=== PATIENT | male | born 1980 | race Caucasian/White ===

== ENCOUNTER 2020-11-07 11:03 | Emergency (ER) | payer MEDICAID, SELFPAY ==
--- NOTE | ~2020-11-07 | XR_ITS ---
EXAMINATION: XR HAND, LEFT CLINICAL INFORMATION: finger amputation. COMPARISON: None TECHNIQUE: PA, lateral, and oblique views of the left hand. FINDINGS: There is amputation of distal mid phalangeal bone and soft tissues of the fourth digit. The PIP and DIP joints of all digits are normal. Rest of the phalanges are normal. XR/XR hand LT min 3V IMPRESSION: Amputation of distal mid phalangeal bone and soft tissues likely echogenic. Rest of the left hand is unremarkable.
[2020-11-07 11:05] VITALS: BP 151/90; PULSE 77; RESP 16; TEMP 37.1; O2SAT 98; BMI 26.6
--- NOTE | 2020-11-07 11:11 | ED.UPPEXIN ---
HPI - Extremity Injury (Upper) General Chief Complaint: Wound/Laceration <Joana Bain DO - Last Filed: 11/07/20 16:16> Stated Complaint: finger amputation <Joana Bain DO - Last Filed: 11/07/20 16:16> Time Seen by Provider: 11/07/20 11:04 <Joana Bain DO - Last Filed: 11/07/20 16:16> Source: patient <FCO Willard - Last Filed: 11/07/20 19:04> Mode of arrival: ambulatory <FCO Willard - Last Filed: 11/07/20 19:04> Limitations: no limitations <FCO Willard - Last Filed: 11/07/20 19:04> History of Present Illness HPI narrative: 40-year-old male presents with left 4th digit amputation on at the DIP. Patient was throwing a TV away, and his right 4th finger got crushed between the TV and the lip of a metal container. Wound is bleeding and there is bone exposed. <FCO Willard - Last Filed: 11/07/20 19:04> MD complaint: injury to: right <FCO Willard - Last Filed: 11/07/20 19:04> Onset (ago): hour(s) (1) <FCO Willard - Last Filed: 11/07/20 19:04> Other Extremity Injury: left: fingers <FCO Willard - Last Filed: 11/07/20 19:04> Other injuries: none <FCO Willard Last Filed: 11/07/20 19:04> Handedness: right <FCO Willard - Last Filed: 11/07/20 19:04> Place: home <FCO Willard Last Filed: 11/07/20 19:04> Severity: severe <FCO Willard - Last Filed: 11/07/20 19:04> Severity scale (1-10): 10 <FCO Willard Last Filed: 11/07/20 19:04> Relieving factors: none <FCO Willard Last Filed: 11/07/20 19:04> Exacerbating factors: movement of extremity <FCO Willard Last Filed: 11/07/20 19:04> Context: direct blow <FCO Willard Last Filed: 11/07/20 19:04> Associated symptoms: denies other symptoms <FCO Willard Last Filed: 11/07/20 19:04> Related Data Home Medications: Previous Rx's Medication Instructions Recorded amoxicillin 875 mg-potassium 1 tab PO BID 7 Days #14 tab 11/07/20 clavulanate 125 mg tablet (Augmentin) oxycodone 5 mg capsule 5 mg PO Q6H 3 Days #12 cap 11/07/20 <DO Carol Stacy Last Filed: 11/07/20 16:16> Allergies/Adverse Reactions: Allergies Allergy/AdvReac Type Severity Reaction Status Date / Time shrimp Allergy Unknown DIFFICULTY Unverified 12/13/19 15:31 BREATHING shrimp Allergy Unknown Uncoded 11/17/18 00:00 <DO Carol Stacy Last Filed: 11/07/20 16:16> Review of Systems Review of Systems: Constitutional : No Weight loss, No Fever, No Chills, No Night Sweats,No Fatigue, No Malaise ENT/Mouth : No Hearing loss, No Ear Pain, No Nasal Congestion, NoSinus Pain, No Hoarseness, No sore throat, No Rhinorrhea, NoSwallowing Difficulty Eyes: No Eye Pain, No Swelling, No Redness, No Foreign Body, NoDischarge, No Vision Changes Cardiovascular : No Chest Pain, No SOB, No Dyspnea on Exertion, NoOrthopnea, No Edema, No Palpitations Respiratory : No Cough, No Sputum, No Wheezing, No Smoke Exposure, No Dyspnea Gastrointestinal : No Nausea, No Vomiting, No Diarrhea, NoConstipation, No abdominal Pain, No Hematochezia, No Melena Genitourinary : no irregular bleeding, No Dysuria, No UrinaryFrequency, No Hematuria, No Urinary Incontinence, No Urgency, No FlankPain, No Urinary Flow Changes, No Hesitancy Musculoskeletal : pain and bleeding at amputation site left fourth finger Skin : No Skin Lesions, No rash Neuro : No Weakness, No Numbness, No Paresthesias, No Loss ofConsciousness, No Dizziness, No Headache Psych : mild anxiety, tremors in hands, , No Depression, No SI/HI/AH/VH, No Social Issues, Endocrine : No Polyuria, No Polydipsia, No Temperature Intolerance <FCO Willard Last Filed: 11/07/20 19:04> PMFSH Past Medical History Medical History: Medical History (Updated 11/07/20 @ 15:41 by FCO Willard) Asthma <Joana Bain DO - Last Filed: 11/07/20 16:16> Social History Social History: Social History Alcohol intake: current Alcohol intake frequency: holidays/special occasions only Patient Tobacco Use Status: Never used Tobacco Substance Use Type: Marijuana <Joana Bain DO - Last Filed: 11/07/20 16:16> Physical Exam Vital Signs: Vital Signs: Last Vital Signs Temp 98.0 F 11/07/20 13:00 Pulse 66 11/07/20 15:08 Resp 18 11/07/20 15:08 BP 127/79 11/07/20 15:08 Pulse Ox 97 11/07/20 15:08 Body Mass Index 26.6 <Joana Bain DO - Last Filed: 11/07/20 16:16> Vital Signs: Last Vital Signs Temp 98.0 F 11/07/20 13:00 Pulse 66 11/07/20 15:08 Resp 18 11/07/20 15:08 BP 127/79 11/07/20 15:08 Pulse Ox 97 11/07/20 15:08 Body Mass Index 26.6 <FCO Willard - Last Filed: 11/07/20 19:04> Const: General: cooperative, no acute distress, well developed, alert and awake <FCO Willard - Last Filed: 11/07/20 19:04> Nutritional Appearance: well nourished <FCO Willard Last Filed: 11/07/20 19:04> Orientation/consciousness: patient oriented x3 <FCO Willard - Last Filed: 11/07/20 19:04> Limitations: no limitations <FCO Willard Last Filed: 11/07/20 19:04> Eyes: Conjunctivae: conjunctivae normal <FCO Willard Last Filed: 11/07/20 19:04> Pupils: Equal, round and reactive pupils present <Jes Torres [facility] Last Filed: 11/07/20 19:04> EOM: EOMs intact bilaterally <Jes Torres [facility] Last Filed: 11/07/20 19:04> Neck: Neck: Yes full ROM, Yes no lymphadenopathy and Yes supple <Jes Torres [facility] Last Filed: 11/07/20 19:04> Resp: Effort & Inspection: normal respiratory effort and able to speak in complete sentences <Jes Torres [facility] Last Filed: 11/07/20 19:04> Auscultation: clear to auscultation bilaterally, no crackles, no rales, no rhonchi and no wheezes <Jes Torres [facility] Last Filed: 11/07/20 19:04> Cardio: Rate: regular rate <Jes Torres [facility] Last Filed: 11/07/20 19:04> Rhythm: regular rhythm <Jes Torres [facility] Last Filed: 11/07/20 19:04> Heart sounds: S1 normal heart sound present and S2 normal heart sound present <Jes Torres [facility] Last Filed: 11/07/20 19:04> Skin: Other: Traumatic amputation of left 4th digit at the IP joint, bone is exposed. <Jes Torres [facility] Last Filed: 11/07/20 19:04> Neuro: General: patient oriented x3, tone normal and moves all extremities <Jse Torres [facility] Last Filed: 11/07/20 19:04> Cranial nerves: Yes Equal, round and reactive pupils present <Jes Torres [facility] Last Filed: 11/07/20 19:04> Extrem: Other: Traumatic amputation of left 4th digit at the IP joint, bone is exposed <Jes Torres [facility] Last Filed: 11/07/20 19:04> Psych: Appearance: grossly normal <Jes Torres [facility] Last Filed: 11/07/20 19:04> Affect: normal affect <Jes Torres [facility] Last Filed: 11/07/20 19:04> Attitude: cooperative <Jes Torres [facility] Last Filed: 11/07/20 19:04> Thought process: Normal thought process present <FCO Willard - Last Filed: 11/07/20 19:04> Course Course Course Narrative: THE PATIENT CAME IN WITH HIS FINGERTIP, I TOLD HIM I WOULD NEED TO CALL [facility] TO IMPLANT IT AND HE ADAMANTLY REFUSES, STATES HE DOESN'T WANT TO UNDERGO SURGERY AND HE DOES NOT CARE ABOUT LOSING HIS FINGERTIP, ALERT AND ORIENTED X 3, RNS AT BEDSIDE. I was called to the bedside by FCO Torres the patient has now been videotaping the PA and myself with our badges and faces included in the videos I have instructed him to please stop filming up as we do not give consent. His response was Fuck you, call the mayor then you'll see who the fuck I am. Security notified. <Joana Bain DO - Last Filed: 11/07/20 16:16> THE PATIENT CAME IN WITH HIS FINGERTIP, I TOLD HIM I WOULD NEED TO CALL [facility] TO IMPLANT IT AND HE ADAMANTLY REFUSES, STATES HE DOESN'T WANT TO UNDERGO SURGERY AND HE DOES NOT CARE ABOUT LOSING HIS FINGERTIP, ALERT AND ORIENTED X 3, RNS AT BEDSIDE. I was called to the bedside by FCO Torres the patient has now been videotaping the PA and myself with our badges and faces included in the videos I have instructed him to please stop filming up as we do not give consent. His response was Fuck you, call the mayor then you'll see who the fuck I am. Security notified. 40-year-old male presents with left 4th fingertip amputation. Patient has his finger tip in a bag and it is warm. However, he refused to be transferred to [place] to have a reattached. Patient spoke both with me and with Dr. foreman about reattaching his finger, and he adamantly refused. Hemostasis was achieved with a tourniquet. Digital block block was performed, 6 mL of 1% lidocaine. Pain control was achieved. I placed 2 loose sutures, but could not pull the skin together. Dr. Linder orthopedics came down and saw the patient and did his procedure. Patient was advised to come into the orthopedic office on Tuesday, given the phone number to call. Patient was advised that the orthopedic surgeon said he did not need an appointment, he could come into the office an orthopedic surgeon would take care of him. Prescribed pain meds and Augmentin. Consultation to return if he had worsening pain, fevers, or any new or concerning symptoms <FCO Willard - Last Filed: 11/07/20 19:04> MDM - Extremity Injury (Upper) Lab Data Result diagrams: : 11/07/20 11:24 11/07/20 11:24 <Joana Bain DO - Last Filed: 11/07/20 16:16> Labs: Lab Results 11/07/20 11/07/20 Range/Units 11:24 11:24 WBC 8.9 (4.8-10.8) X10*3/uL RBC 5.32 (4.60-5.80) X10*6/uL Hgb 14.8 (14.0-18.0) g/dl Hct 45.9 (42-52) % MCV 86.3 (80-98) fL MCH 27.8 (27.0-33.0) pg MCHC 32.2 (31.0-36.0) g/dl RDW 14.4 (11.0-16.0) % Plt Count 229 (160-400) X10*3/uL MPV 9.8 (9.4-12.4) fL Immature Gran % (Auto) 0.2 (0.0-0.4) % Neut % (Auto) 65.2 (45-73) % Lymph % (Auto) 21.3 (20-40) % [place] % (Auto) 10.4 (2-11) % Eos % (Auto) 2.6 (0-4) % Baso % (Auto) 0.3 (0-2) % Lymph # (Auto) 1.9 (1.2-4.9) X10*3/uL [place] # (Auto) 0.9 (0.1-1.2) X10*3/uL Eos # (Auto) 0.2 (0.0-0.4) X10*3/uL Baso # (Auto) 0.0 (0.0-0.2) X10*3/uL Abs Immat Gran (auto) 0.02 (0.00-0.03) X10*3/uL Absolute Neuts (auto) 5.8 (2.0-8.3) X10*3/uL Absolute Nucleated RBC 0.000 (0.0-0.012) X10*3/uL Nucleated RBC % (auto) 0.0 (0.0-0.2) /100WBC Sodium 143 (135-145) mmol/L Potassium 4.4 (3.3-5.1) mmol/L Chloride 111 H (96-108) mmol/L Carbon Dioxide 22 (22-29) mmol/L Anion Gap 14 (12-20) BUN 16 (9-16) mg/dL Creatinine 1.08 (0.5-1.4) mg/dL Estim Creat Clear Calc 84.1 Estimated GFR > 60 Random Glucose 103 (60-115) mg/dL Calcium 8.9 (8.4-10.2) mg/dL <Joana Bain DO - Last Filed: 11/07/20 16:16> Lab Results 11/07/20 11/07/20 Range/Units 11:24 11:24 WBC 8.9 (4.8-10.8) X10*3/uL RBC 5.32 (4.60-5.80) X10*6/uL Hgb 14.8 (14.0-18.0) g/dl Hct 45.9 (42-52) % MCV 86.3 (80-98) fL MCH 27.8 (27.0-33.0) pg MCHC 32.2 (31.0-36.0) g/dl RDW 14.4 (11.0-16.0) % Plt Count 229 (160-400) X10*3/uL MPV 9.8 (9.4-12.4) fL Immature Gran % (Auto) 0.2 (0.0-0.4) % Neut % (Auto) 65.2 (45-73) % Lymph % (Auto) 21.3 (20-40) % [place] % (Auto) 10.4 (2-11) % Eos % (Auto) 2.6 (0-4) % Baso % (Auto) 0.3 (0-2) % Lymph # (Auto) 1.9 (1.2-4.9) X10*3/uL [place] # (Auto) 0.9 (0.1-1.2) X10*3/uL Eos # (Auto) 0.2 (0.0-0.4) X10*3/uL Baso # (Auto) 0.0 (0.0-0.2) X10*3/uL Abs Immat Gran (auto) 0.02 (0.00-0.03) X10*3/uL Absolute Neuts (auto) 5.8 (2.0-8.3) X10*3/uL Absolute Nucleated RBC 0.000 (0.0-0.012) X10*3/uL Nucleated RBC % (auto) 0.0 (0.0-0.2) /100WBC Sodium 143 (135-145) mmol/L Potassium 4.4 (3.3-5.1) mmol/L Chloride 111 H (96-108) mmol/L Carbon Dioxide 22 (22-29) mmol/L Anion Gap 14 (12-20) BUN 16 (9-16) mg/dL Creatinine 1.08 (0.5-1.4) mg/dL Estim Creat Clear Calc 84.1 Estimated GFR > 60 Random Glucose 103 (60-115) mg/dL Calcium 8.9 (8.4-10.2) mg/dL <FCO Willard Last Filed: 11/07/20 19:04> Procedures Laceration Laceration 1: Site: hand <FCO Willard Last Filed: 11/07/20 19:04> Side (If applicable): left <FCO Willard Last Filed: 11/07/20 19:04> Description: flap <FCO Willard Last Filed: 11/07/20 19:04> Local Anesthetic: lidocaine 1% <FCO Willard Last Filed: 11/07/20 19:04> Amount of anesthesia used (mL): 6 <FCO Willard Last Filed: 11/07/20 19:04> Pre-repair: wound explored and irrigated extensively <FCO Willard Last Filed: 11/07/20 19:04> Skin layer closed with: vicryl <FCO Willard Last Filed: 11/07/20 19:04> Size (cm): 4-0 <FCO Willard Last Filed: 11/07/20 19:04> Number of sutures: 2 <FCO Willard - Last Filed: 11/07/20 19:04> Technique: simple, interrupted <FCO Willard - Last Filed: 11/07/20 19:04> Discharge Plan Discharge Clinical Impression: Amputated finger Qualifiers: Encounter type: initial encounter Qualified Code(s): S68.119A - Complete traumatic metacarpophalangeal amputation of unspecified finger, initial encounter <Joana Bain DO - Last Filed: 11/07/20 16:16> Patient Disposition: Home, Self-Care <Joana Bain DO - Last Filed: 11/07/20 16:16> Instructions: Finger Amputation (ED) <Joana Bain DO - Last Filed: 11/07/20 16:16> Additional Instructions: Please leave the dressing on her finger and so Tuesday. Please comment to the orthopedic office on Tuesday, they were unable to make an appointment today, but Dr. Linder . said it can come in any time and then he will see you. I advise you to Please call when you get home [phone] I am prescribing antibiotics and pain medication, please pick them up at your pharmacy. Please return to the emergency room if you have worsening pain, fevers, vomiting, or any other new or concerning symptoms <Joana Bain DO - Last Filed: 11/07/20 16:16> Prescriptions: New amoxicillin-pot clavulanate [Augmentin] 875-125 mg tablet 1 tab PO BID 7 Days Qty: 14 RF: 0 oxycodone 5 mg capsule 5 mg PO Q6H 3 Days Qty: 12 RF: 0 <Joana Bain DO - Last Filed: 11/07/20 16:16> Referrals: Lobo Linder MD [Physician] - 2 days (coming to see you Tuesday) <DO Carol Stacy Last Filed: 11/07/20 16:16> Interventions: ED Discharge Assessment Last Done: 11/07/20 15:47 <Joana Bain DO - Last Filed: 11/07/20 16:16> Discharge Date/Time: 11/07/20 15:48 <DO Carol Stacy Last Filed: 11/07/20 16:16>
[2020-11-07] MEDS: HYDROmorphone HCl 1 MG/ML SYRINGE IVPUSH (11:15)
[2020-11-07] MEDS: ondansetron HCL 4 MG/2 ML VIAL IVPUSH (11:16)
[2020-11-07] MEDS: Diphth,Pertus(ACell),Tet Adult 0.5 ML SYRINGE IM (11:19)
[2020-11-07 11:27] LABS: MANUAL DIFF FLAG NO
[2020-11-07 11:29] LABS: Basophils Percent Auto 0.3 % (0-2); Eosinophils Absolute Auto 0.2 X10*3/uL (0.0-0.4); Eosinophils Percent Auto 2.6 % (0-4); Hematocrit 45.9 % (42-52); Hemoglobin 14.8 g/dl (14.0-18.0); Imm Gran Abs Auto 0.02 X10*3/uL (0.00-0.03); Imm Gran Pct Auto 0.2 % (0.0-0.4); Lymphocytes Absolute Auto 1.9 X10*3/uL (1.2-4.9); Lymphocytes Percent Auto 21.3 % (20-40); Mean Corpuscular HGB Conc 32.2 g/dl (31.0-36.0); Mean Corpuscular Hemoglobin 27.8 pg (27.0-33.0); Mean Corpuscular Volume 86.3 fL (80-98); Mean Platelet Volume 9.8 fL (9.4-12.4); Monocytes Absolute Auto 0.9 X10*3/uL (0.1-1.2); Monocytes Percent Auto 10.4 % (2-11); Neutrophils Absolute Auto 5.8 X10*3/uL (2.0-8.3); Neutrophils Percent Auto 65.2 % (45-73); Platelet Count 229 X10*3/uL (160-400); Red Blood Count 5.32 X10*6/uL (4.60-5.80); Red Cell Distribution Width 14.4 % (11.0-16.0); White Blood Count 8.9 X10*3/uL (4.8-10.8)
[2020-11-07] MEDS: Lidocaine HCl 1 % MPF 5 ML VIAL SUBCUT ×2 (11:44)
[2020-11-07 11:51] LABS: Anion Gap 14 (12-20); Blood Urea Nitrogen 16 mg/dL (9-16); Calcium 8.9 mg/dL (8.4-10.2); Carbon Dioxide 22 mmol/L (22-29); Chloride 111 mmol/L (96-108); Creatinine Clr Calc Pharmacy 84.1; Estimated Glomerular Filt Rate > 60; Glucose Random 103 mg/dL (60-115); Potassium 4.4 mmol/L (3.3-5.1); Sodium 143 mmol/L (135-145)
--- NOTE | 2020-11-07 12:33 | PC.NURSE ---
ortho mlp at bedside, pt aware of plan of care.
[2020-11-07 13:00] VITALS: BP 140/92; PULSE 70; RESP 16; TEMP 36.7; O2SAT 98
[2020-11-07] MEDS: Lidocaine HCl 1 % 20 ML VIAL 10 ML INFILTRATI (14:12)
[2020-11-07 14:13] VITALS: BP 135/93; PULSE 68; RESP 16; O2SAT 96
--- NOTE | 2020-11-07 14:15 | PC.NURSE ---
dr. Linder at bedside, pt and sister aware of plan of care.
--- NOTE | 2020-11-07 14:27 | PC.NURSE ---
called [facility] at 1400 for stemi call placed to action for stemi standby at 1403 [facility] called back at [phone] and accepted pt left er on ambulance at [phone]
[2020-11-07] MEDS: HYDROmorphone HCl 2 MG TABLET 1 MG PO (14:30)
--- NOTE | 2020-11-07 15:06 | PC.NURSE ---
ASSUMED CARE OF PT. PT HAVING PROCEDURE DONE AT THIS TIME. PT DENIES PAIN/COMPLAINTS AT THIS TIME. SISTER AT BEDSIDE WITH PT. WILL CONTINUE TO MONITOR PT.
[2020-11-07 15:08] VITALS: BP 127/79; PULSE 66; RESP 18; O2SAT 97
--- NOTE | 2020-11-24 13:51 | PM.OP ---
Brief Operative Note Date of Service: 11/07/20 Pre-op diagnosis: traumatic partial amputation left ring jalene Post-op diagnosis: same Procedure: debridement and clsoere, partial amputation Surgeon: Lobo Linder MD Anesthesia: local Was an Intelligence Research Specialist used for this Procedure?: No Estimated blood loss (mL): 20 Pathology: none sent Condition: stable Disposition: no change
--- NOTE | 2020-11-24 13:54 | W.PM.OPN ---
Operative Note Operative Note Date of Service: 11/24/20 Narrative: Pre-op diagnosis: traumatic partial amputation left ring finge Post-op diagnosis: same Procedure: debridement and clsoere, partial amputation Surgeon: Lobo Linder MD Anesthesia: local Was an Digital Media Buyer used for this Procedure?: No Estimated blood loss (mL): 20 Pathology: none sent Condition: stable Disposition: no change
--- NOTE | 2020-11-24 16:26 | W.PM.OPN ---
Operative Note Operative Note Date of Service: 11/24/20 Narrative: Pre-op diagnosis: traumatic partial amputation left ring finge Post-op diagnosis: same Procedure: debridement and clsoere, partial amputation Surgeon: Lobo Linder MD Anesthesia: local Was an Pumping Plant Operator used for this Procedure?: No Estimated blood loss (mL): 20 Pathology: none sent Condition: stable Disposition: no change Procedure in detail: I began by sterilizing the field in standard fashion. I then injected approximately 8 mL of 0.25% Marcaine into the base of the ring finger. Once he was completely anesthetized I irrigated copiously 0 with approximately 2 L of warm saline. I then used a small rongeur to remove the portion of exposed bone. I then used a 3-0 nylon suture to reapproximate the skin over any additional exposed bone. There was also a nail avulsion with tenuous skin over the dorsum of the finger. I then wrapped the wound and Xeroform and a soft bandage and the patient was sent home with a prescription of antibiotics and pain medication. Patient understands that he may require dished all procedures for completion amputation of the digit.
== END 2020-11-07 15:48 | disposition home or self-care (01) ==
PROVIDERS: Emergency Provider Emergency Medicine
DX: S68.615A Complete traumatic transphalangeal amputation of left ring finger, initial encounter (principal); W23.1XXA Caught, crushed, jammed, or pinched between stationary objects, initial encounter; Y93.E9 Activity, other interior property and clothing maintenance; Y92.9 Unspecified place or not applicable; Y99.9 Unspecified external cause status
CPT/HCPCS: 12042; 36415; 73130; 80048; 85025; 90471; 90715; 96365; 96375; 99284; J0690; J1170; J2405

== ENCOUNTER → 2020-11-10 09:28 | Outpatient (BNVA) | payer MEDICAID, SELFPAY | PROVIDERS: Visit Provider Physician Assistant | DX: S68.115A Complete traumatic metacarpophalangeal amputation of left ring finger, initial encounter (principal) | CPT/HCPCS: 99202 ==

== ENCOUNTER → 2020-11-19 09:36 | Outpatient (BNVA) | payer MEDICAID, SELFPAY | PROVIDERS: Visit Provider Physician Assistant | DX: Z47.81 Encounter for orthopedic aftercare following surgical amputation (principal); S68.115D Complete traumatic metacarpophalangeal amputation of left ring finger, subsequent encounter | CPT/HCPCS: 99212 ==

== ENCOUNTER 2020-11-19 20:22 | Emergency (ER) | payer MEDICAID, SELFPAY ==
--- NOTE | ~2020-11-19 | XR_ITS ---
EXAMINATION: XR HAND, LEFT CLINICAL INFORMATION: Injury COMPARISON: None TECHNIQUE: PA, lateral, and oblique views of the left hand. FINDINGS: 8. Distal aspect distal phalanx fourth digit. Multiple bone fragments in the region. XR/XR hand LT min 3V IMPRESSION: Significantly Comminuted bony fracture/injury involving the distal tuft. Fourth digit. There may be avulsion of the most distal fragments with loss of soft tissue. Fracture does not appear to involve the DIP joint
[2020-11-19 20:45] VITALS: BP 119/61; PULSE 105; RESP 18; TEMP 37; O2SAT 95; BMI 25.8
[2020-11-19] MEDS: oxyCODONE HCl Immed Release 5 MG TABLET 10 MG PO (22:44)
[2020-11-19] MEDS: Amoxicillin/Potassium Clav 875 MG TABLET PO (22:45)
--- NOTE | 2020-11-19 23:09 | ED.WOUNDLAC ---
HPI - Wound/Laceration General Chief Complaint: Wound/Laceration Stated Complaint: pain in ring finger Time Seen by Provider: 11/19/20 21:39 Source: patient Mode of arrival: ambulatory Limitations: no limitations History of Present Illness HPI narrative: Patient with left hand ring finger tip amputation on 11/10 came with throbbing pain , seen hand specialist today and plan to get surgery done. Complaining of throbbing pain and came to the ER as unable to get the pain medication Related Data Previous Rx's Medication Instructions Recorded oxycodone 5 mg capsule 5 mg PO Q6H 3 Days #12 cap 11/07/20 amoxicillin 875 mg-potassium 1 tab PO BID 7 Days #14 tab 11/19/20 clavulanate 125 mg tablet (Augmentin) oxycodone-acetaminophen 5 mg-325 1 tab PO .QHS PRN 7 Days #7 tab 11/19/20 mg tablet (Percocet) Allergies Allergy/AdvReac Type Severity Reaction Status Date / Time shrimp Allergy Unknown DIFFICULTY Verified 11/19/20 20:45 BREATHING shrimp Allergy Unknown nausea Uncoded 11/19/20 09:47 Review of Systems Review of Systems: Yes all other systems are reviewed and are negative [facility] Past Medical History Medical History Asthma Social History Social History (Updated 11/19/20 @ 09:44 by Jean Shea) Alcohol intake: current Alcohol intake frequency: holidays/special occasions only Patient Tobacco Use Status: Never used Tobacco Substance Use Type: Marijuana Advance Directives: No Advance Directives Information Provided: Yes Current occupational status: unemployed Current occupation: rt handed Physical Exam Vital Signs: Vital Signs: Last Vital Signs Temp 98.6 F 11/19/20 20:45 Pulse 105 H 11/19/20 20:45 Resp 18 11/19/20 20:45 BP 119/61 11/19/20 20:45 Pulse Ox 95 11/19/20 20:45 Body Mass Index 25.8 Extrem: Hand/finger images: 1. Tip amputation left ring finger with black eschar with intact sutures MDM - Wound/Laceration MDM Narrative Medical decision making narrative: Xeroform dressing was applied patient advised to continue pain medication and antibiotic and follow with hand surgeon as scheduled Discharge Plan Discharge Clinical Impression: Amputation of left ring finger Patient Disposition: Home, Self-Care Instructions: Finger Amputation (ED) Additional Instructions: Continue antibiotic and take pain medication as prescribed and follow-up with hand surgeon as scheduled Prescriptions: No Action oxycodone 5 mg capsule 5 mg PO Q6H 3 Days Qty: 12 RF: 0 amoxicillin-pot clavulanate [Augmentin] 875-125 mg tablet 1 tab PO BID 7 Days Qty: 14 RF: 0 oxycodone-acetaminophen [Percocet] 5-325 mg tablet 1 tab PO .QHS PRN (Reason: pain) 7 Days Qty: 7 RF: 0
== END 2020-11-19 23:34 | disposition home or self-care (01) ==
PROVIDERS: Emergency Provider Internal Medicine; PCP Internal Medicine
DX: S68.115A Complete traumatic metacarpophalangeal amputation of left ring finger, initial encounter (principal); S00.81XA Abrasion of other part of head, initial encounter; M79.642 Pain in left hand; X58.XXXA Exposure to other specified factors, initial encounter; Y93.9 Activity, unspecified; Y92.9 Unspecified place or not applicable; Y99.9 Unspecified external cause status; Z79.899 Other long term (current) drug therapy
CPT/HCPCS: 73130; 99283; 99284

== ENCOUNTER 2020-11-21 11:30 | Outpatient (RCR) | payer MEDICAID, SELFPAY ==
--- NOTE | 2020-11-11 12:11 | MHC.OT.OEV ---
[address] [phone] F: [phone] Occupational Therapy Evaluation Diagnosis: Left D4 finger tip amputation Date of Onset: 11/07/20 Date of Surgery: Attending Provider: Nestor Shipley PA-C Prescribed Treatment: Eval and Treat MD Follow Up Appointment: 11/17/20 History of Current Condition: 40 yo male presents four days s/p left D4 distal digit tip amputation. He was seen in ED by Dr Linder, partially sutured and partially open healing. He followed up with Nestor, wound dressed w/ bacitracin and gauze, and referred to OT for follow up wound care. 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 No s/s of infection. AROM(PROM) Strength Digits Index MCP: PIP: DIP: Long MCP: PIP: DIP: Ring MCP: PIP: DIP: Small MCP: PIP: DIP: Comments: slightly decreased D4 MP/PIP Gross Grasp: Lateral Pinch: Two-Point Pinch: Three-Jaw Stevenson: Comments: Patient Education Primary Language: Trinid[place] Bell Captain Required: No Current Knowledge: Minimal, needs reinforcement Teaching Method: Demonstration Handouts Phone Call Verbal Education Needs Identified on Evaluation: ADL's Disease Information Equipment Use Exercise Pain Safety How did patient/family demonstrate learning? Patient demonstrates Patient verbalizes Needs reinforcement Barriers to Learning: None Readiness for Learning: Accepting Who was educated? Patient Comments: Pt needing reminders to keep wound/dressing dry, elevated. Pt with somewhat decreased STM, forgetting to make appts on way out, needing cues to return to appts. Plan of Care Assessment: 40 yo male presents four days s/p left D4 distal digit tip amputation. He was seen in ED by Dr Linder, partially sutured and partially open healing. He followed up with Nestor, wound dressed w/ bacitracin and gauze, and referred to OT for follow up wound care. On initial OT eval, dressing removed, dry and needing saline poured over to assist loosen bandage. Sutures intact, otherwise wound is open w/ light sanguineous drainage, no s/s of infection. He will require cont'd OT for wound care and progression of activity once wound is closed. STG Duration: 1 week Short Term Goals: Pt to demo good safety w/ protection of wound, including keeping dressing clean and dry Good PIP and MP movement LTG Duration: 4 weeks Pressure Tank Operator Goals: Pt to demo Ind w/ self desesnitization techniques Pt to use ring finger for light activity if wound is closed Frequency and Duration: The patient will be seen 3x/wk for 4 weeks Treatment Plan: Therapeutic Exercise Therapeutic Activity Home Exercise Program Splinting Patient Education Desensitization/Sensory Re-ed Edema Control ADL Training Soft Tissue Mobilization Electronically Signed By: Erendira Moreno OTR/L Reviewed/agree with student documentation: N/A Therapist: Please sign and return to therapist, Thank you for your referral.
--- NOTE | 2020-11-17 11:54 | MHC.OT.OP ---
[address] [phone] F: [phone] Occupational Therapy Progress Note Diagnosis: Left D4 finger tip amputation Date of Surgery: 11/07/20 Date of Evaluation: 11/11/20 Treatments to Date: 3 Subjective: I've just had a hard week Pain Score: 6 Pain Location: Left D4 tip Objective Measures: Presents 30 min late, discussed importance of keeping to schedule, but that therapist appreciates he still comes and even in the future to come if he is late or misses an appt. Pt present w/ gauze and coban dressing, dressing is dirty, reviewed importance of keeping clean. OT removed dressing, using light sterile water poured over to assist w/ dryness. Sutures intact and wound bed clean, no drainage, healing skin buds noted. Edges clean, proximal site healing well w/ light pink skin. Distal tip noted dark red 1cm sq region, does not appear to be black/necrotic tissue, no sign of infection. Practiced gentle AROM of digit. Redressed w/ bacitracin, light gauze and gauze tube wrap, no compressive force at this time. Pt ed on importance of keeping dry and clean, discussed smoking and wound closure. Status: Progressing Assessment: Sutures intact, otherwise wound is open w/ no drainage, no s/s of infection. Needs reminders for optimal healing techniques. Short Term Goals: Pt to demo good safety w/ protection of wound, including keeping dressing clean and dry Good PIP and MP movement Nursing Information Systems Coordinator Goals: Pt to demo Ind w/ self desesnitization techniques Pt to use ring finger for light activity if wound is closed Frequency and Duration: The patient will be seen 3-5x/wk for 4 weeks Treatment Plan: Therapeutic Exercise Therapeutic Activity Home Exercise Program Splinting Patient Education Desensitization/Sensory Re-ed Edema Control ADL Training Soft Tissue Mobilization Electronically Signed By: ADRYAN Contreras/Domi
--- NOTE | 2020-12-10 10:57 | MHC.OT.DC ---
[address] [phone] F: [phone] Occupational Therapy Discharge Note Provider: Dr Gonzalez Diagnosis: Left D4 finger tip amputation Date of Surgery: 11/07/20 Date of Evaluation: 11/11/20 Date of Discharge: 12/10/20 Treatments to Date: 5 Discharge Summary: Lamine has recently undergone surgical amputation/revision of distal tip amputation and is seen by ortho for follow-ups, He has not returned to OT since surgery. We will discharge at this time, please re-order if needed to continue simple wound care and/or progression of rehab, thank you. Electronically Signed By: Erendira Moreno OTR/Domi Please Sign and return to therapist, thank you for your referral.
== END 2020-12-10 10:58 | disposition home or self-care (01) ==
LOC: HO.OT 11:30
PROVIDERS: Visit Provider Physician Assistant
DX: S68.115A Complete traumatic metacarpophalangeal amputation of left ring finger, initial encounter (principal)
CPT/HCPCS: 97110; 97165; 97530; 97597

== ENCOUNTER 2020-11-25 07:22 | Day surgery (SDC) | payer MEDICAID, SELFPAY ==
[2020-11-25] VITALS (8 sets, daily range): BP systolic 115–143; BP diastolic 73–95; PULSE 64–88; RESP 12–18; TEMP 36.3–36.8; O2SAT 99–100; BMI 26.6
--- NOTE | 2020-11-25 09:20 | PC.NURSE ---
Patient arrived to [facility] with one black watch, two bracelets, two necklaces, and three rings. All removed and placed in patient labeled bins.
--- NOTE | 2020-11-25 10:52 | HO.ANESPROP2 ---
HPI - Anesthesia Eval Consult details Narrative: [age] male for amputation revision of the left ring finger PMFSH Active Problems Active Problems: All Active Problems (Updated 11/19/20 @ 22:36 by Wade De La Vega MD) Amputation of left ring finger (Acute) Past Medical History Medical History Asthma Family History Family history of problems with anesthesia: No Surgical History History of Problems with Anesthesia: No Social History Social History (Updated 11/19/20 @ 09:44 by Jean Shea) Alcohol intake: current Alcohol intake frequency: holidays/special occasions only Patient Tobacco Use Status: Current everyday Tobacco user Tobacco use type: Cigarette Cigarettes Per Day: 5 Years Smoked: 15 Smoked in Last 30 Days: Yes Use of substances other than those prescribed or required for medical reasons: No Substance Use Type: Marijuana Substance Use Frequency: Chronic Longstanding Are you DNR?: No Advance Directives: No Advance Directives Information Provided: Yes Current occupational status: unemployed Current occupation: rt handed Meds Allergies Allergy/AdvReac Type Severity Reaction Status Date / Time shrimp Allergy Unknown DIFFICULTY Verified 11/25/20 08:04 BREATHING shrimp Allergy Unknown nausea Uncoded 11/19/20 09:47 Exam Exam Date and Time: November 25, 2020 1052 Height,Weight and Vital Signs: Height 5 ft 7 in Weight 170 lb Last Vital Signs Temp 98.3 F 11/25/20 08:29 Pulse 78 11/25/20 08:29 Resp 16 11/25/20 08:29 BP 135/78 11/25/20 08:29 Pulse Ox 100 11/25/20 08:29 Airway Mallampati Class: II TM Dist: >3cm Loose/Missing/Broken Teeth: No Assessment and Plan Assessment Anesthesia Assessment: Anesthesia Plan Discussed and Chart Reviewed Final Anesthetic Review Family History of Problems with Anesthesia: No History of Problems with Anesthesia: No NPO: Yes ASA Class: I Final Preanesthetic Review: No Changes in Pt Med Stat, Meds/Allgs Chart Reviewed, Consent Obtained/Reviewed and Anes Risks/Benef Reviewed Patient Risk: Low Procedure Risk: Low Anesthetic Plan Anesthetic Plan: GA Disposition: Standard PACU
--- NOTE | 2020-11-25 11:09 | MHC.SHP ---
Pre-Procedural Eval Section A Date of Service: 11/25/20 The patient is an INPATIENT: No Changes since office visit: No Cold of Flu in the past 2 weeks, No New Medical Problems, No Changes in Medication and No Patient answered all questions The History & Physical has been completed within 30 days and I have reviewed it.: Yes Section B Chief Complaint: amp revision Allergies: Allergies Allergy/AdvReac Type Severity Reaction Status Date / Time shrimp Allergy Unknown DIFFICULTY Verified 11/25/20 08:04 BREATHING shrimp Allergy Unknown nausea Uncoded 11/19/20 09:47 Plan I have reviewed the history and physical and performed a pertinent physical examination on my patient. No changes have occurred unless specified.
--- NOTE | 2020-11-25 11:09 | W.PM.OPN ---
Operative Note Operative Note Date of Service: 11/25/20 Narrative: Operative Note Narrative: Preop diagnosis: 1. Right ring finger distal phalanx level amputation Postop diagnosis: Same Procedure: 1. Right ring finger revision amputation 2. Right ring finger excision of germinal and sterile nail matrices Surgeon: Stefany Gonzalez MD Anesthesia: General Findings: Implants: Tourniquet time: None minutes EBL: 5.0 ml Specimen: None Drains: None Complications: None Disposition: Brought to the recovery room in stable condition Plan: Continue antibiotics Follow-up in 5-7 days for wound check, Anticipate suture removal at 3 weeks postop Indications: The patient is a 40 year old man with partial amputation of his left ring finger . The risks and benefits of operative treatment, including but not limited to risk of damage to blood vessels, nerves, tendons, infection, recurrence, persistent pain or numbness, incomplete resolution of preoperative symptoms, or need for further surgery were discussed with the patient and they wished to proceed with surgery. Procedure: Once consent was obtained patient was brought back to the operating suite and placed in the operating table in a supine position. . Perioperative antibiotics and anesthesia was administered by the anesthesia team. A tourniquet was applied to the proximal aspect of the left upper extremity and the limb was prepped and draped in a standard surgical fashion. The tourniquet was not inflated during the case. A digital block was performed using some 0.5% plain Marcaine. Sutures were removed from the left ring finger and the amputation site evaluated. The wound edges were freshened up using iris scissors and a 15. Blade. The remaining sterile and germinal matrices were removed using a 15. Blade and using small rongeur. The bone was shortened by a few mm using a rongeur were to facilitate wound closure. The wound was also debrided of devitalized tissue, and copiously irrigated with normal saline. The skin edges were then reapproximated with some 4-0 Prolene suture material. Hemostasis obtained with a brief period of local pressure. A a dressing was applied. The patient appears to have tolerated the procedure well and with no complications. All digits were well vascularized conclusion of the case.
[2020-11-25] MEDS: Lactated Ringers 1,000 ML 50 ML IVCONT (11:14)
[2020-11-25] MEDS: oxyCODONE HCl Immed Release 5 MG TABLET PO (11:44)
--- NOTE | 2020-11-25 14:46 | PC.NURSE ---
1200 Pt arrived to Discharge area and requested to go into the bathroom. Pt ID was verified by second RN and went into the bathroom. Pt came out of restroom after 10 minutes and was seated in W/C to review discharge instructions. Pt asked about ride home and replied with I am going to call and [employer]. Pt became loud when asked if he has alternate transportation plan as requested with the surgery was scheduled. Attempts by 2 additional nurses to de escalate patient about our concerns for his safety. Pt had a friend at the hospital and stated he would be leaving with her and they would make arrangements to get home. Pts friend ?Adela stated she would assume responsibility of the patients care. Instructions were provided to patient. Pt finished his cup of coffee. Pt signed discharge documents. Pt ambulatory on discharge, gait steady, skin pwd. Dressing clean dry and intact. 1230. end
== END 2020-11-25 12:30 | disposition home or self-care (01) ==
PROVIDERS: PCP Internal Medicine; Visit Provider Orthopaedic Surgery
PROC: (CPT 26951; principal; 2020-11-25 07:30)
DX: S68.624A Partial traumatic transphalangeal amputation of right ring finger, initial encounter (principal); X58.XXXA Exposure to other specified factors, initial encounter; Y93.9 Activity, unspecified; Y92.9 Unspecified place or not applicable; Y99.9 Unspecified external cause status
CPT/HCPCS: 26951; J0690; J1100; J2250; J2405; J3010

== ENCOUNTER → 2020-12-03 15:38 | Outpatient (BNVA) | payer MEDICAID, SELFPAY | PROVIDERS: PCP Internal Medicine; Visit Provider Orthopaedic Surgery | DX: S68.115D Complete traumatic metacarpophalangeal amputation of left ring finger, subsequent encounter (principal) | CPT/HCPCS: 99212 ==

== ENCOUNTER 2020-12-24 08:27 | Outpatient (REF) | payer MEDICAID, SELFPAY ==
--- NOTE | ~2020-12-24 | XR_ITS ---
EXAMINATION: XR HAND, LEFT CLINICAL INFORMATION: Pain left hand. COMPARISON: None TECHNIQUE: PA, lateral, and oblique views of the left hand. FINDINGS: There is a partially amputated left distal fourth digit beyond the proximal and distal phalanx with a stump. There is a soft tissue abrasion along the distal stump. Rest of the left hand is unremarkable. XR/XR hand LT min 3V IMPRESSION: Amputated distal fourth digit beyond the proximal end distal phalanx with skin abrasion involving distal soft tissue stump. No fracture seen.
== END 2020-12-24 08:28 | disposition home or self-care (01) ==
LOC: HO.HOSX 08:27
PROVIDERS: Visit Provider Orthopaedic Surgery
DX: S68.115D Complete traumatic metacarpophalangeal amputation of left ring finger, subsequent encounter (principal)
CPT/HCPCS: 73130; 99212